=== PATIENT | female | born 1945 | race Native Hawaiian/Other Pacific Islander ===

== ENCOUNTER 2024-01-16 14:55 | Inpatient (IN) | payer MEDICARE, MEDICAID, SELFPAY ==
--- NOTE | ~2024-01-16 | CT_ITS ---
EXAMINATION: CT HEAD WITHOUT CONTRAST (STROKE PROTOCOL) CLINICAL INFORMATION: Stroke protocol. Slurred speech and altered mental status. COMPARISON: None available. TECHNIQUE: Contiguous axial imaging was performed from the skull base to vertex without intravenous administration of contrast. This CT examination was performed using dose optimization techniques as appropriate, variously including the following: *Automated exposure control *Adjustment of mA and/or kV according to patient size (this includes techniques or standardized protocols for targeted exams where dose is matched to indication/reason for exam; i.e. extremities or head) *Use of iterative reconstruction technique DLP: 687 mGy-cm FINDINGS: There is prominence to the sulci and ventricles with mild deep white matter gliosis. No evidence for intra or extra-axial fluid collection, hemorrhage, mass, or mass effect. There is low-attenuation are seen, in the brainstem and left sandra which could reflect a pontine infarct of uncertain age. Please correlate with MRI with diffusion-weighted sequences. Calvarium intact. CT/CT head for stroke IMPRESSION: No evidence for an intracranial hemorrhage however there is a suggestion of ischemic change of uncertain chronicity in the brainstem and left sandra. MRI is advised. Results will be telephoned to the ED, by the PSA.
--- NOTE | ~2024-01-16 | MR_ITS ---
EXAMINATION: MR BRAIN WITHOUT CONTRAST CLINICAL INFORMATION: CVA COMPARISON: Same-day CT head and CT angiogram of the head and neck TECHNIQUE: MRI of the brain was obtained using routine sequences without contrast. FINDINGS: Acute infarction in the left paramedian sandra corresponding to hypodensity on the prior CT. Punctate chronic right cerebellar hemisphere lacunar infarction chronic infarctions in the bilateral thalami. Approximately 1.4 cm extra-axial mass along the right posterior fossa which likely represents a meningioma but is incompletely characterized in the absence of intravenous contrast. Susceptibility weighted sequence is within normal limits. No midline shift. The basal cisterns are maintained. Moderate to advanced generalized cerebral volume loss with moderate chronic microvascular ischemic change. Intracranial flow voids are preserved. Scattered mild paranasal sinus polypoid mucosal thickening. The mastoid air cells are well-aerated. No focal expansile or destructive osseous lesion. MR/MR head/brain wo con IMPRESSION: Acute infarction in the left paramedian sandra corresponding to hypodensity on the prior CT examination. Moderate chronic microvascular ischemic change with small chronic lacunar infarctions in the bilateral thalami and right cerebellar hemisphere.
--- NOTE | ~2024-01-16 | CT_ITS ---
EXAMINATION: CT ANGIOGRAM NECK WITH CONTRAST CT ANGIOGRAM BRAIN WITH CONTRAST CLINICAL INFORMATION: Right arm weakness. Slurred speech. COMPARISON: Head CT January 26, 2024. TECHNIQUE: Test bolus sequences followed by intravenous administration 70 mL of Omnipaque 350. Helical imaging was performed in the axial plane from the thoracic inlet to the skull vertex. Delayed postcontrast imaging of the head was also performed. The data was processed at the electroencephalographic technologist workstation for generation of MIP sequences. Angled MIPs and volume rendered reformatted images were also generated at an offline 3D workstation under concurrent supervision. Stenoses are assessed in accordance with NASCET criteria unless otherwise indicated. This CT examination was performed using dose optimization techniques as appropriate, variously including the following: *Automated exposure control *Adjustment of mA and/or kV according to patient size (this includes techniques or standardized protocols for targeted exams where dose is matched to indication/reason for exam; i.e. extremities or head) *Use of iterative reconstruction technique FINDINGS: BRAIN: Suspected acute to subacute infarct within the left paramedian sandra that would be better assessed with a MRI of the brain is not contraindicated. There is global cerebral volume loss and there is chronic microangiopathy. There is a 1.7 cm enhancing extra-axial nodule within the right lateral aspect of the posterior fossa that abuts without invading the anterior margin of the right sigmoid sinus, most suggestive of a meningioma. [There is no intracranial hemorrhage, hydrocephalus, extra-axial surface collection, midline shift, or other herniation pattern. Freeman to white matter differentiation is diffusely maintained without evidence of an evolved acute territorial infarct. The basilar cisterns are preserved. No significant soft tissue abnormality. No acute osseous abnormality. The paranasal sinuses and the mastoid air cells are well aerated.] CERVICAL SOFT TISSUES AND LUNG APICES: Imaged upper lungs are clear. No significant soft tissue findings are appreciated within the neck. There is multilevel cervical spondylosis. NECK CTA: There is atherosclerotic calcification throughout the aortic arch and of the great vessel origins without significant stenosis. Atherosclerotic disease results in a severe stenosis of the right vertebral artery origin. The left vertebral artery is dominant and the cervical vertebral arteries are otherwise widely patent throughout their course. The vertebral arteries are codominant. No significant ostial stenosis is visualized on either side. Both vertebral arteries are widely patent throughout their extracranial cervical course. Atherosclerotic calcification involving the carotid bifurcations bilaterally without significant stenosis involving the proximal internal carotid arteries on either side. BRAIN CTA: No acute arterial occlusions intracranially. Extensive atherosclerotic calcification throughout the carotid siphons bilaterally resulting in mild stenoses. Atherosclerotic disease results in a severe stenosis of the right P2 BLOOD BANK SUPERVISOR segment and there is a severe stenosis involving a posterior right M2 middle cerebral artery branch. No aneurysm. Timing of the contrast bolus allows assessment of the major dural venous sinuses, which all opacify normally] CT/CT angio head neck stroke IMPRESSION: * Suspected acute to subacute infarct within the left paramedian sandra that would be better assessed with a MRI of the brain is not contraindicated. There is global cerebral volume loss and there is chronic microangiopathy. No intracranial hemorrhage. * There is a 1.7 cm enhancing extra-axial nodule within the right lateral aspect of the posterior fossa that abuts without invading the anterior margin of the right sigmoid sinus, most suggestive of a meningioma. * No acute arterial occlusions intracranially. Atherosclerotic disease results in a severe stenosis of the right P2 BLOOD BANK SUPERVISOR segment and there is a severe stenosis involving a posterior right M2 middle cerebral artery branch. * Atherosclerotic disease results in a severe stenosis of the right vertebral artery origin. * Multilevel cervical spondylosis. Disc protrusions at C3-C4 and C4-C5 result in suspected mass effect on the cervical spinal cord that can be correlated clinically for cervical myelopathy.
--- NOTE | 2024-01-16 15:03 | ECG_ITS ---
Test Reason : ?STROKE Blood Pressure : / mmHG Vent. Rate : 083 BPM Atrial Rate : 083 BPM P-R Int : 210 ms QRS Dur : 082 ms QT Int : 390 ms P-R-T Axes : 041 -10 060 degrees QTc Int : 458 ms Sinus rhythm with 1st degree A-V block Inferior infarct , age undetermined Possible Anterior infarct , age undetermined Abnormal ECG No previous ECGs available Referred By: Jeimy Rebolledo Electronically Signed By:RANDY ROSE MD
[2024-01-16 15:06] VITALS: BP 200/94; PULSE 85; RESP 16; TEMP 36.6; O2SAT 96; BMI 24.6
[2024-01-16 15:08] LABS: Prothrombin Time Whole Bld POC 11.1 sec (11.1-13.5); ~PT, ~INR - Anti Coag Clinic 0.9 (0.9-1.1)
[2024-01-16] MEDS: iohexoL 350 MG/ML 100 ML INFUS..BTL IV (15:14)
--- NOTE | 2024-01-16 15:35 | ED_ITS ---
HPI - Neuro Symptoms/Deficit General Chief Complaint: Stroke Stated Complaint: FACIAL DROOP, SLURRED SPEECH, LKW 1PM, Time Seen by Provider: 01/16/24 15:02 Source: patient and EMS Mode of arrival: EMS Limitations: other (poor historian) History of Present Illness ED Provider: BUTCH HPI Narrative: 78 yo female with PMH of arthritis, DM, HTN, HLD, R BKA amputation here with c/o waking up yesterday morning and her R arm felt heavy and numb she notes it has worsened since then and became weaker. She denies falling. She then noted change in vision of the R eye as well. Today a few hours prior to arrival her son noted R sided facial droop, slurred speech, she told him about the blindness in the R eye and then he noted her R arm was weaker than he realized. He thought she was c/o arthritis in the arm. He called 911 worried about a stroke. She is not on blood thinners. Onset (ago): day(s) (yesterday AM upon waking) Location: speech, right face, right arm and other (vision) History of same: No Severity: moderate Quality: weak, numb and constant Relieving factors: none Exacerbating factors: none Context: gradual onset On Anticoagulants: No Associated symptoms: weakness Treatments Prior to Arrival: none Related Data Allergies Allergy/AdvReac Type Severity Reaction Status Date / Time No Known Allergies Allergy Verified 01/16/24 15:09 Review of Systems 2 Review of Systems: Constitutional : No Fever, No Chills, No Fatigue ENT/Mouth : No sore throat, No Rhinorrhea Eyes: No Eye Pain, No Swelling, No Redness, pos vision loss Cardiovascular : No Chest Pain, No SOB, No Dyspnea on Exertion Respiratory : No Cough, No Sputum Gastrointestinal : No Nausea, No Vomiting, No Diarrhea, No abdominal Pain Genitourinary : No Dysuria, No Urinary Frequency, No Hematuria, Musculoskeletal : No joint pain, No Myalgias, No Joint Swelling Skin : No Skin Lesions, No rash Neuro : pos Weakness, pos Numbness, No Dizziness, no Headache Psych : No Anxiety/Panic, No Depression All other systems reviewed and are negative PMFSH Past Medical History Attestation statement: The following information was validated with the patient. Source: old records reviewed Medical History (Updated 01/16/24 @ 15:54 by Jeimy Rebolledo DO) Hyperlipidemia HTN (hypertension) Diabetes Surgical History (Updated 01/16/24 @ 15:44 by Jeimy Rebolledo DO) Hx of right BKA Social History Social History (Updated 01/16/24 @ 15:44 by Jeimy Rebolledo DO) Patient Tobacco Use Status: Never used Tobacco Advance Directives: No Advance Directives Information Provided: No Physical Exam 2 Vital Signs: Vital Signs: Last Vital Signs Temp 97.8 F 01/16/24 15:06 Pulse 85 01/16/24 15:06 Resp 16 01/16/24 15:06 BP 200/94 H 01/16/24 15:06 Pulse Ox 96 01/16/24 15:06 O2 Del Method Room Air 01/16/24 15:06 BMI result Body Mass Index 24.6 Appearance: Alert. Oriented X 2. No acute distress. Eyes: Pupils equal, round and reactive to light. ENT: Pharynx normal. Neck: Normal inspection. Neck supple. CVS: Normal heart rate and rhythm. Pulses normal. Respiratory: No respiratory distress. Breath sounds normal. Abdomen: Soft and non-tender. Skin: Skin warm and dry. Normal skin color. Normal skin turgor. Extremities: No lower extremity edema. 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 Medications Administered Discontinued Medications Generic Name Dose Route Start Last Admin Trade Name Freq PRN Reason Stop Dose Admin Iohexol 100 ml 01/16/24 15:14 01/16/24 15:14 Iohexol 350 Mg/Ml 100 Ml Infus..Btl IV 01/16/24 15:15 70 ml ONCE ONE Administration Medical Decision Making Medical Decision Making MDM Narrative: 78 yo female with PMH of arthritis, DM, HTN, HLD, R BKA amputation here with c/o R eye change in vision, R arm weakness, slurred speech last known well yesterday AM she is very consistent her arm started to not work well yesterday AM so she is not a candidate for TNK based off symptom onset and her son notes he didn't realize he thought it was pain. She will get CTA but suspect her onset is 24 hours ago given her reports and thrombectomy likely will not be done. Will admit for stroke work up pending reads and interventions. Discussed reasons for no TNK with son. Differential Diagnosis Differential Diagnoses: The differential diagnosis associated with the presentation includes acute CVA, mass, ICH Admission/Observation Consideration of admission/observation: Escalation of care including admission/observation considered admit for stroke Consult Healthcare Provider Management of the patient was discussed with: Hospitalist (will admit) Lab Data MDM Lab Attestation statement: I reviewed the patient's lab results. 01/16/24 15:33 01/16/24 15:33 Labs: Lab Results 01/16/24 01/16/24 Range/Units 15:02 15:33 WBC 10.1 (4.8-10.8) X10*3/uL RBC 3.79 L (4.20-5.50) X10*6/uL Hgb 11.4 L (12.0-16.0) g/dl Hct 32.5 L (37.0-47.0) % MCV 85.8 (80.0-98.0) fL MCH 30.1 (27.0-33.0) pg MCHC 35.1 H (31.0-35.0) g/dl RDW 12.8 (11.0-16.0) % Plt Count 266 (160-400) X10*3/uL MPV 9.3 L (9.4-12.3) fL Immature Gran % (Auto) 0.5 H (0.0-0.4) % Neut % (Auto) 72.6 (45-73) % Lymph % (Auto) 15.3 L (20-40) % [place] % (Auto) 5.3 (2-11) % Eos % (Auto) 5.8 H (0-4) % Baso % (Auto) 0.5 (0-2) % Lymph # (Auto) 1.6 (1.2-4.9) X10*3/uL [place] # (Auto) 0.5 (0.1-1.2) X10*3/uL Eos # (Auto) 0.6 H (0.0-0.4) X10*3/uL Baso # (Auto) 0.1 (0.0-0.2) X10*3/uL Abs Immat Gran (auto) 0.05 H (0.00-0.03) X10*3/uL Absolute Neuts (auto) 7.4 (2.0-8.3) x10*3/uL Absolute Nucleated RBC 0.000 (0.0-0.012) X10*3/uL Nucleated RBC % (auto) 0.0 (0.0-0.2) /100WBC PT 10.7 L (11.1-13.3) SEC Whole Blood PT 11.1 (11.1-13.5) sec INR 0.9 (0.9-1.1) Whole Blood INR 0.9 (0.9-1.1) Estimat Average Glucose 203 mg/dL Hemoglobin A1c % 8.7 H (<6.0) % Independent Interpretation I performed an independent interpretation of an: EKG and CT Scan (+ stroke) Interpretation: Rate: 83 Rhythm: NSR 1st degree AVB [place]: left Normal P waves. Normal MACKENZIE. Normal QRS complex. ST T wave : no JOHAN inverted t waves V1, flat t waves aVL qTC: 458 prior studies: old inf infarct The study has been interpreted contemporaneously by me. . Radiology Impression Discussion of test interpretation with radiology: I discussed test interpretation with the radiologist and I have reviewed the radiologist's reading. Radiologist Impression: CT head no ICH concern for sandra/brainstem infarct 346pm CTA - left pontine infarct acute to subacute infarct Independent Historian Clinical information obtained from an independent historian. History obtained from or confirmed by: EMS and Other (son Huy) External Record Review External record reviewed: Outpatient record NIH Stroke Scale Level of Consciousness: Alert Level of Consciousness Questions: Answers one question correctly Level of Consciousness Commands: Performs both tasks correctly Best Gaze: Partial gaze palsy Visual: Partial hemianopia Facial Palsy: Minor paralyis Motor Arm (Right): Some effort against gravity Motor Arm (Left): No drift Motor Leg (Right): No drift Motor Leg (Left): No drift Limb Ataxia: Absent Sensory: Mild to moderate sensory loss Best Language: No aphasia Dysarthia: Mild to moderate dysarthria Extinction and Inattention: Visual, tactile, auditory, spatial, or personal inattention Score: 9 Critical Care Time Critical Care Time Critical Care Time: Yes Total Critical Care Time: 40 Attestation: review of records, stroke protocol, admission, radiology discussions, fam discussion I attest to this time spent taking care of the patient Discharge Plan Discharge Clinical Impression: Left pontine CVA Patient Disposition: Admitted As Inpatient Print Language: Nepali
[2024-01-16 15:39] LABS: MANUAL DIFF FLAG NO
[2024-01-16 15:40] LABS: Basophils Absolute Auto 0.1 X10*3/uL (0.0-0.2); Basophils Percent Auto 0.5 % (0-2); Eosinophils Absolute Auto 0.6 X10*3/uL (0.0-0.4); Eosinophils Percent Auto 5.8 % (0-4); Hematocrit 32.5 % (37.0-47.0); Hemoglobin 11.4 g/dl (12.0-16.0); Imm Gran Abs Auto 0.05 X10*3/uL (0.00-0.03); Imm Gran Pct Auto 0.5 % (0.0-0.4); Lymphocytes Absolute Auto 1.6 X10*3/uL (1.2-4.9); Lymphocytes Percent Auto 15.3 % (20-40); Mean Corpuscular HGB Conc 35.1 g/dl (31.0-35.0); Mean Corpuscular Hemoglobin 30.1 pg (27.0-33.0); Mean Corpuscular Volume 85.8 fL (80.0-98.0); Mean Platelet Volume 9.3 fL (9.4-12.3); Monocytes Absolute Auto 0.5 X10*3/uL (0.1-1.2); Monocytes Percent Auto 5.3 % (2-11); Neutrophils Absolute Auto 7.4 x10*3/uL (2.0-8.3); Neutrophils Percent Auto 72.6 % (45-73); Platelet Count 266 X10*3/uL (160-400); Red Blood Count 3.79 X10*6/uL (4.20-5.50); Red Cell Distribution Width 12.8 % (11.0-16.0); White Blood Count 10.1 X10*3/uL (4.8-10.8)
[2024-01-16 15:51] LABS: INTERNATIONAL NORM RATIO 0.9 (0.9-1.1); Prothrombin Time 10.7 SEC (11.1-13.3)
[2024-01-16 15:52] LABS: Estimated Average Glucose 203 mg/dL; Hemoglobin A1c % 8.7 % (<6.0)
--- NOTE | 2024-01-16 16:02 | P.HPHOSP_ITS ---
History of Present Illness Date of Service: 01/16/24 Chief Complaint: Slurred speech This is a 78-year-old Nepali female with pertinent history of [id number]-jxwoielsu diabetes mellitus, hypertension, peripheral arterial disease status post right BKA, hypertension who was brought to the emergency department for evaluation of slurred speech. History obtained with the help of family member at bedside as patient is not fluent in [place] Citizen. Patient woke up 1 day prior to presentation with right upper extremity weakness. She thought it was due to diabetes. On the day of presentation, patient was found to have slurred speech and facial droop by family member and was asked to come to the ER. Also had some vision changes. No history of stroke before. Does not use insulin for diabetes. Patient denies fever, chills, chest discomfort, palpitations, shortness of breath, abdominal pain, changes in urinary or bowel habits. In the emergency department, imaging of the head with suspected acute to subacute infarct within the left sandra. Review of Systems 2 Constitutional: Constitutional: Reports no additional constitutional complaints and Reports weakness Cardiovascular: Cardiovascular: Reports no additional cardiovascular complaints Respiratory: Respiratory: Reports no additional respiratory complaints Gastrointestinal: Gastrointestinal: Reports no additional gastrointestinal complaints Genitourinary: Genitourinary: Reports no additional female genitourinary complaints Neurologic: Reports Abnormal speech present and Reports weakness [facility] History Hyperlipidemia HTN (hypertension) Diabetes Pertinent family history: No family history of early CAD Surgical History Hx of right BKA Social History Patient Tobacco Use Status: Never used Tobacco Smoked in Last 30 Days: No Use of substances other than those prescribed or required for medical reasons: No Advance Directives: No Advance Directives Information Provided: No Nutrition Risks: On aspiration precautions Meds Allergies Allergy/AdvReac Type Severity Reaction Status Date / Time No Known Allergies Allergy Verified 01/16/24 15:09 Home Medications ?Medication ?Instructions ?Recorded ?Confirmed ?Last Taken ?Type acetaminophen 325 mg tablet 650 mg PO Q4H PRN Pain 01/16/24 01/16/24 Unknown History amlodipine 10 mg tablet 10 mg PO DAILY 01/16/24 Unknown History atorvastatin 20 mg tablet 20 mg PO BEDTIME 01/16/24 Unknown History carvedilol 25 mg tablet 25 mg PO BID 01/16/24 Unknown History gabapentin 300 mg capsule 300 mg PO BEDTIME 01/16/24 Unknown History glipizide 5 mg tablet 5 mg PO DAILY 01/16/24 Unknown History levothyroxine 75 mcg tablet 75 mcg PO DAILY 01/16/24 Unknown History levothyroxine 75 mcg tablet 112.5 mcg PO LY 01/16/24 01/16/24 01/13/24 History metformin 1,000 mg tablet 1,000 mg PO BID 01/16/24 Unknown History olmesartan 40 mg tablet 40 mg PO DAILY 01/16/24 Unknown History sitagliptin phosphate 100 mg 100 mg PO DAILY 01/16/24 Unknown History tablet (Januvia) Physical Exam 2 Vital Signs and Narrative: Vital Signs: Last Vital Signs Temp 97.8 F 01/16/24 15:06 Pulse 85 01/16/24 15:06 Resp 16 01/16/24 15:06 BP 200/94 H 01/16/24 15:06 Pulse Ox 96 01/16/24 15:06 O2 Del Method Room Air 01/16/24 15:06 BMI result Body Mass Index 24.6 Middle-aged female lying in bed in no distress Neck supple, no JVD Regular rate and rhythm, S1-S2 heard Regular breath sounds bilaterally, no wheezing or crackles appreciated Abdomen soft nontender, no guarding, no rigidity Patient is awake, alert and oriented to self, place, time and person, Right BKA, slurred speech with mild facial droop, right arm pronator drift present Psych: Normal mood Neuro: Speech: Abnormal speech present Results Labs 01/16/24 15:33 01/16/24 15:33 Labs: Laboratory Results - last 24 hr 01/16/24 01/16/24 15:02 15:33 MCV 85.8 MCH 30.1 MCHC 35.1 H RDW 12.8 Plt Count 266 MPV 9.3 L Immature Gran % (Auto) 0.5 H Neut % (Auto) 72.6 Lymph % (Auto) 15.3 L [place] % (Auto) 5.3 Eos % (Auto) 5.8 H Baso % (Auto) 0.5 Lymph # (Auto) 1.6 [place] # (Auto) 0.5 Eos # (Auto) 0.6 H Baso # (Auto) 0.1 Abs Immat Gran (auto) 0.05 H Absolute Neuts (auto) 7.4 Absolute Nucleated RBC 0.000 Nucleated RBC % (auto) 0.0 PT 10.7 L Whole Blood PT 11.1 INR 0.9 Whole Blood INR 0.9 Estimat Average Glucose 203 Hemoglobin A1c % 8.7 H Imaging Radiologist's Impressions: Impressions Head CT 01/16/24 15:09 IMPRESSION: No evidence for an intracranial hemorrhage however there is a suggestion of ischemic change of uncertain chronicity in the brainstem and left sandra. MRI is advised. Results will be telephoned to the ED, by the PSA. Head/Neck CTA 01/16/24 15:32 IMPRESSION: * Suspected acute to subacute infarct within the left paramedian sandra that would be better assessed with a MRI of the brain is not contraindicated. There is global cerebral volume loss and there is chronic microangiopathy. No intracranial hemorrhage. * There is a 1.7 cm enhancing extra-axial nodule within the right lateral aspect of the posterior fossa that abuts without invading the anterior margin of the right sigmoid sinus, most suggestive of a meningioma. * No acute arterial occlusions intracranially. Atherosclerotic disease results in a severe stenosis of the right P2 BLACK OFF WORKER segment and there is a severe stenosis involving a posterior right M2 middle cerebral artery branch. * Atherosclerotic disease results in a severe stenosis of the right vertebral artery origin. * Multilevel cervical spondylosis. Disc protrusions at C3-C4 and C4-C5 result in suspected mass effect on the cervical spinal cord that can be correlated clinically for cervical myelopathy. Assessment and Plan (1) Slurred speech: Status: Acute Plan This is a 78-year-old Nepali female with pertinent history of csv-zckwqwd-qdmmqjyol diabetes mellitus, hypertension, peripheral arterial disease status post right BKA, hypertension who was brought to the emergency department for evaluation of slurred speech. #. Slurred speech with right-sided weakness: Will admit patient with cardiac monitoring. Imaging with left pontine acute to subacute CVA. Obtaining MRI. A1c elevated, will optimize antihyperglycemics. Lipid panel and echo pending to complete workup. Neurology consulted, appreciate assistance. PT/OT consult evaluate and treat. Nursing swallow screen. Initiating aspirin and high- intensity statin #. Gkx-qgzdvcs-kljscapdz diabetes mellitus with hyperglycemia: Initiating basal plus insulin regimen #. Hypertension: Allow for permissive hypertension #. Hypothyroidism: On Synthroid Med rec pending DVT prophylaxis: Lovenox Full code Admit as inpatient and will require two night minimum hospital stay for management possible acute CVA (as above), which is not possible in a lesser acute setting. Specialist consult pending Quality Stroke Does the patient have a stroke diagnosis?: No VTE Prior VTE?: No VTE Risk Level:: Medical - moderate - high VTE Device Contraindication: Treatment Not Indicated VTE Drug Contraindication: N/A - Med Ordered
[2024-01-16 16:03] LABS: Alanine Aminotransferase 18 U/L (0-31); Albumin Level 3.3 g/dL (3.5-5.0); Alkaline Phosphatase 100 U/L (39-117); Anion Gap 11 (12-20); Aspartate Amino Transferase 17 U/L (5-31); Bilirubin Direct 0.1 mg/dL (0.0-0.5); Bilirubin Total 0.5 mg/dL (0.0-1.0); Blood Urea Nitrogen 19 mg/dL (9-16); Carbon Dioxide 24 mmol/L (22-29); Chloride 104 mmol/L (96-108); Cholesterol 189 mg/dL (<200); Creatinine Clr Calc Pharmacy 38.3; Estimated Glomerular Filt Rate 54; Glucose Random 345 mg/dL (60-115); HDL Cholesterol 39 mg/dL (>40); Magnesium 1.8 mg/dL (1.6-2.6); Potassium 4.4 mmol/L (3.3-5.1); Sodium 135 mmol/L (135-145); Total Protein 6.3 g/dL (6.5-8.0); Triglycerides 460 mg/dL (<150)
[2024-01-16 16:06] LABS: Calcium 9.2 mg/dL (8.4-10.2)
[2024-01-16 16:09] LABS: Troponin-I High Sensitivity < 2.7 ng/L (<3.5-17.0)
[2024-01-16] MEDS: Aspirin 81 MG TAB.CHEW PO (16:38)
[2024-01-16 16:40] VITALS: BP 163/75; PULSE 84; RESP 12; O2SAT 97
--- NOTE | 2024-01-16 17:02 | PHA.MEDREC ---
Addendum entered by Gerhard Howell shiva 01/16/24 17:08: med rec reviewed Original Note: Pharmacy Consult ? Medication Reconciliation Pharmacy has completed the medication reconciliation. Spoke to patient son at bedside to confirm med list. Son had a list of patients medications with him.
[2024-01-16 17:09] LABS: Appearance Urine Clear; Color Urine Yellow; Glucose Urine UA >=1000 mg/dL (Negative); Leukocyte Esterase Urine Negative (Negative); Nitrite Urine Negative (Negative); PH 7.5 (5.0-9.0); UMIC TRIGGER UACC YES; Urine Blood Negative (Negative); Urine Ketones Negative (Negative); Urine Protein 300 (3+) mg/dL (Neg-Trace)
--- NOTE | 2024-01-16 17:16 | PC.NURSE ---
MRI screening for completed w son at bedside and faxed to MRI - per provider okay to go t MRI w/o cardiac monitoring.
[2024-01-16 17:30] LABS: Bacteria Urine 3+ (None Seen); Hyaline Casts Urine 0-2 /LPF (0-2); RBC Urine 0-2 /HPF (0-2); Squamous Epithelial Cell Urine 0-2 /HPF (0-2); WBC Urine 0-5 /HPF (0-5)
[2024-01-16 19:01] VITALS: BP 190/77; PULSE 79; RESP 19; O2SAT 99
--- NOTE | 2024-01-16 19:03 | PC.NURSE ---
late note: pt BIBA from home, per EMS pt found by son at 1300 w R sided facial droop/upper extremity weakness/slurred speech/blindness in R eye. arrived w 18G PIV R AC and sent to CT scan. labs obtained, teachers' assistant applied. after speaking w pt, it was determined that symptoms started yesterday on waking w R arm felt heaviness/numbness. some improvement in R extremity strength and speech clarity but pt remains notably weaker on the R side. passed swallow eval, provider notified. R BKA - son to bring in prosthesis and rollator walker. pt incontinent of urine. MRI screening form filled out w son at bedside and faxed to MRI - pt to MRI. monitor d/c'd for imaging per provider order. on return to room pt appeared less confused, a&ox4, hypertensive, other vss, con'td decreased strength RUE.
[2024-01-16 19:43] LABS: Glucose, Whole Blood 338 mg/dL (60-115)
[2024-01-16 19:58] VITALS: BP 177/89; PULSE 80; RESP 17; TEMP 36.9; O2SAT 98
[2024-01-16 20:55] LABS: Glucose, Whole Blood 228 mg/dL (60-115)
[2024-01-16] MEDS: Insulin Lispro 100 UNIT/ML 3 ML VIAL SUBCUT (21:03)
[2024-01-16] MEDS: Insulin Glargine,Hum.rec.anlog 100 UNIT/ML 10 ML VIAL 12 UNIT SUBCUT (21:03)
[2024-01-16] MEDS: Atorvastatin Calcium 20 MG TABLET PO (21:04)
[2024-01-16] MEDS: Atorvastatin Calcium 40 MG TABLET PO (21:04)
[2024-01-16 21:07] VITALS: BP 180/85; PULSE 74; RESP 17; TEMP 36.6; O2SAT 98
[2024-01-16] MEDS: Gabapentin 300 MG CAPSULE PO (21:07)
[2024-01-16 22:44] VITALS: BP 154/53; PULSE 86; RESP 17; TEMP 36.6; O2SAT 98
[2024-01-17] VITALS (11 sets, daily range): BP systolic 128–166; BP diastolic 56–77; PULSE 64–86; RESP 16–20; TEMP 36–36.7; O2SAT 95–99
--- NOTE | 2024-01-17 04:15 | PC.NURSE ---
Pt is being admitted for acute infarction in L sandra shown on MRI . She speaks Greek, a/ox4 ( VERY SWEET) , uses a walker at baseline. Pt presents with slurred speech( appears resolved) , R side weakness, R side facial droop. LNW 1300 8/.Passed swallow exam,Plan is neuro consult, PT/OT, ASA and statin. PMH: HTN, DM, RBKA. 18 RAC.
[2024-01-17] MEDS: Levothyroxine Sodium 75 MCG TABLET PO (05:50)
[2024-01-17 06:04] LABS: MANUAL DIFF FLAG NO
[2024-01-17 06:17] LABS: Basophils Absolute Auto 0.1 X10*3/uL (0.0-0.2); Basophils Percent Auto 0.6 % (0-2); Eosinophils Absolute Auto 0.9 X10*3/uL (0.0-0.4); Eosinophils Percent Auto 9.2 % (0-4); Hematocrit 33.1 % (37.0-47.0); Hemoglobin 11.4 g/dl (12.0-16.0); Imm Gran Abs Auto 0.06 X10*3/uL (0.00-0.03); Imm Gran Pct Auto 0.6 % (0.0-0.4); Lymphocytes Absolute Auto 2.4 X10*3/uL (1.2-4.9); Lymphocytes Percent Auto 23.9 % (20-40); Mean Corpuscular HGB Conc 34.4 g/dl (31.0-35.0); Mean Corpuscular Hemoglobin 29.6 pg (27.0-33.0); Mean Platelet Volume 9.7 fL (9.4-12.3); Monocytes Absolute Auto 0.6 X10*3/uL (0.1-1.2); Monocytes Percent Auto 6.5 % (2-11); Neutrophils Absolute Auto 5.8 x10*3/uL (2.0-8.3); Neutrophils Percent Auto 59.2 % (45-73); Platelet Count 283 X10*3/uL (160-400); Red Blood Count 3.85 X10*6/uL (4.20-5.50); White Blood Count 9.8 X10*3/uL (4.8-10.8)
[2024-01-17 06:34] LABS: Anion Gap 13 (12-20); Blood Urea Nitrogen 19 mg/dL (9-16); Calcium 9.2 mg/dL (8.4-10.2); Carbon Dioxide 25 mmol/L (22-29); Chloride 105 mmol/L (96-108); Creatinine Clr Calc Pharmacy 34.8; Estimated Glomerular Filt Rate 48; Glucose Random 234 mg/dL (60-115); Potassium 4.1 mmol/L (3.3-5.1); Sodium 139 mmol/L (135-145)
--- NOTE | 2024-01-17 07:00 | CA_ITS ---
Transthoracic Echocardiogram Patient (Last, First, Middle): Carito Mullen, Gender: Female Date of : 1945 Age: 78 Procedure Date: 01/17/2024 Procedure Type: Transthoracic Echocardiogram Location: ER Height: 154.94 cm Weight: 58.97 kg BSA: 1.57 m2 Heart Rate: 70 bpm BP: 171 / [address] Security: TO Referring MD: Katy Flaherty MD Vending Machine Refiller: Dein Nuñez MD Symptoms: CVA Study Quality: Adequate w contrast ECG Rhythm: Sinus Conclusions: - 1. Normal LV ejection fraction 60 65% with impaired relaxation filling pattern 2. Normal cardiac valvular Dopplers 3. Mildly dilated ascending aorta at 3.7 cm 4. Normal RV systolic pressure 5. Small pericardial effusion Findings Procedure Information Contrast agent, definity, is being given per protocol without apparent complications. Left Ventricle Normal left ventricular size, thickness, and systolic function. The visually estimated ejection fraction is between 60-65%. Spectral Doppler is indicative of an impaired relaxation filling pattern. E/E prime ratio is between 8 and 15 consistent with indeterminate filling pressures. Right Ventricle Normal right ventricular cavity size and systolic function. Atria Both atria are normal in size. There is no evidence of interatrial shunt. Aortic Valve Normal aortic valve structure and function. There is no aortic valve stenosis. There is no aortic valve regurgitation. Mitral Valve Normal mitral valve structure and function. There is trace mitral valve regurgitation. There is no mitral valve stenosis. Tricuspid Valve There is trace tricuspid valve regurgitation. The right ventricular systolic pressure is normal. The right ventricular systolic pressure is 19 mmHg. Normal right atrial pressure. There is no evidence of pulmonary hypertension. Great Vessels There is mild dilatation of the ascending aorta measuring 3.70 cm. Venous The inferior vena cava is normal in size and collapses greater than 50% with inspiration. Pericardium/Pleural There is a small loculated pericardial effusion overlying the left ventricle. Prior Study Comparison No prior study available for comparison. Measurements 2D Linear Measurements IVSd: 1.16 0.6-0.9/0.6-1.0 cm LVIDd: 4.18 3.9-5.3/4.2-5.9 cm LVIDd Index: 2.66 2.4-3.2/2.2-3.1 cm/m2 LVIDs: 2.84 2.0-3.6 cm LVPWd: 0.98 0.7-1.1 cm LA Diam: 2.90 2.7-3.8/3.0-4.0 cm LAIDs Index: 1.85 1.5-2.3 cm/m2 LV Mass: 186.70 67-162/88-224 g LV Mass Index: 118.92 43-95/49-115 g/m2 LVOT Diam: 2.00 3.0+(-)1.3 cm 2D Systolic Function EF 4C: 69.40 >55% EF 2C: 60.00 >55% EF BiP: 64.30 >55% Mitral Valve MV VTI: 0.30 MV Pk Gurmeet: 1.13 MV Mn Gurmeet: 0.69 MV Pk Grad: 5.00 MV Mn Grad: 2.00 MV Pk E: 0.63 MV PK A: 0.93 MV Decel Time: 199.00 E/A: 0.70 E'Lateral: 5.66 E'Medial: 4.68 E/E' Med: 13.50 E/E' Lat: 11.10 PHT: 58.00 MVA PHT: 3.79 MVA Continuity: 1.62 Decel [place]: 3.16 Aortic Valve AoV Pk Gurmeet: 1.23 AoV Mn Gurmeet: 0.85 AoV VTI: 0.23 AoV Pk Grad: 6.00 Aov Mn Grad: 3.00 CAROL Cont.VTI: 2.13 LVOT LVOT Pk Gurmeet: 0.85 LVOT Mn Gurmeet: 0.57 LVOT VTI: 0.16 LVOT Pk Grad: 3.00 LVOT Mn Grad: 1.00 LVOT Diam: 2.00 LVOT Area: 3.14 Diastolic Function MV Pk E: 0.63 MV Pk A: 0.93 E/A: 0.70 E'Medial: 4.68 E/E' Med: 13.50 E' Laterial: 5.66 E/E' Lat: 11.10 Right Ventricle TAPSE (mm): 18.70 TVS' Gurmeet: 10.80 Tricuspid Valve TR Pk Gurmeet: 2.01 TR Pk Grad: 16.00 RA Press: 3.00 RVSP: 19.00 Great Vessels Aorta Sinus of Valsalva: 3.30 2.0-3.5 cm Ao Asc: 3.70 2.1-3.4 cm Ao Arch: 2.20 Updated in Other Vendor System with Status of Final Deni Nuñez MD electronically signed on 01/17/2024 3:17:18 PM with status of Final
[2024-01-17 07:24] LABS: Glucose, Whole Blood 246 mg/dL (60-115)
[2024-01-17] MEDS: Aspirin Enteric Coated 81 MG TABLET.DR PO (07:26)
[2024-01-17] MEDS: SITagliptin Phosphate 100 MG TABLET PO (07:26)
[2024-01-17] MEDS: Insulin Lispro 100 UNIT/ML 3 ML VIAL SUBCUT ×4 (07:26→20:58)
[2024-01-17 07:53] LABS: Cholesterol 171 mg/dL (<200); HDL Cholesterol 39 mg/dL (>40); LDL Cholesterol Calculated 70 mg/dL (<100); Triglycerides 311 mg/dL (<150)
[2024-01-17] MEDS: carvediloL 25 MG TABLET PO ×2 (09:13→20:57)
[2024-01-17] MEDS: amLODIPine Besylate 5 MG TABLET PO ×2 (09:14→14:59)
--- NOTE | 2024-01-17 09:16 | MHC.CM.PN ---
Patient is unavailable;CM spoke with Son/HCP/Huy @ [phone] and addressed IMM with him (original will be mailed certified letter to Huy and a copy has been placed on the chart). Patient lives in a condo with Huy and she uses a prosthetic leg and rollator to assist with mobility. Patient is active with [facility] (RN quarterly visits). Patient will benefit from a PT eval to assist with disposition; Huy has approved referral being made for both STR and [facility]. CM has initiated and will follow for dc planning. CM has requested a copy of the HCP (Son/Huy & a Shinto member are the Agents). PCP is Dr. Ford but she sees the [facility] under Dr. Ford.
[2024-01-17] MEDS: Valsartan 160 MG TABLET PO (09:51)
--- NOTE | 2024-01-17 10:28 | MHC.CM.PN ---
CM has faxed a request to Medical Records @ [facility] @ [phone], requesting a copy of the HCP.
--- NOTE | 2024-01-17 10:36 | P.CNNE_ITS ---
History of Present Illness Data of Consult Service Date: 01/17/24 Primary Care Provider: Unknown Physician HPI Reason for consult: Stroke 78 years old woman with uncontrolled hypertension and uncontrolled diabetes came to hospital with at least a day or 2 history of right-sided weakness and facial weakness. No acute stroke treatment was possible and she was admitted for proper evaluation. She was complaining of right arm and hand weakness. There was no associated headache dizziness nausea or vomiting. Her systolic but pressure admission was 200. Review of Systems 2 Review of Systems: No recent cold or flu-like illness seizure-like activity or trauma. [facility] Past Medical History Medical History Hyperlipidemia HTN (hypertension) Diabetes Surgical History Surgical History Hx of right BKA Social History Social History Patient Tobacco Use Status: Never used Tobacco service: No Meds Allergies Allergy/AdvReac Type Severity Reaction Status Date / Time No Known Allergies Allergy Verified 01/16/24 15:09 Active Medications: Current Medications Acetaminophen (Acetaminophen 325 Mg Tablet) 650 mg PO Q6H PRN PRN Reason: Pain, Mild (Pain Scale 1-3), fever or headache Amlodipine Besylate (Amlodipine Besylate 5 Mg Tablet) 5 mg PO DAILY [facility]; Protocol Last Admin: 01/17/24 09:14 Dose: 5 mg Aspirin (Aspirin Enteric Coated 81 Mg Tablet.) 81 mg PO DAILY [facility] Last Admin: 01/17/24 07:26 Dose: 81 mg Atorvastatin Calcium (Atorvastatin Calcium 80 Mg Tablet) 80 mg PO BEDTIME [facility] Calcium Carbonate (Calcium Carbonate 750 Mg Tab.Chew) 750 mg PO Q4H PRN PRN Reason: Heartburn Carvedilol (Carvedilol 25 Mg Tablet) 25 mg PO BID [facility]; Protocol Last Admin: 01/17/24 09:13 Dose: 25 mg Gabapentin (Gabapentin 300 Mg Capsule) 300 mg PO BEDTIME [facility] Last Admin: 01/16/24 21:07 Dose: 300 mg Glucose (Glucose Gel 15 Gm Gel..Gram.) 15 gm PO Q15M PRN; Protocol PRN Reason: per Hypoglycemia Standing Ord. Dextrose (D10) 250 mls @ 750 mls/hr IV Q15M PRN; Protocol PRN Reason: per Hypoglycemia Standing Ord. Insulin Glargine (Insulin Glargine,Hum.Rec.Anlog 100 Unit/Ml 10 Ml Vial) 12 unit SUBCUT BEDTIME [facility] Last Admin: 01/16/24 21:03 Dose: 12 unit Insulin Human Lispro (Insulin Lispro 100 Unit/Ml 3 Ml Vial) 0 unit SUBCUT QIDACHS [facility]; Protocol Last Admin: 01/17/24 07:26 Dose: 4 unit Levothyroxine Sodium (Levothyroxine Sodium 75 Mcg Tablet) 75 mcg PO MoTuWeThFrSa@0600 [facility] Last Admin: 01/17/24 05:50 Dose: 75 mcg Levothyroxine Sodium (Levothyroxine Sodium 75 Mcg Tablet) 112.5 mcg PO Ly@0600 [facility] Magnesium Hydroxide (Milk Of Magnesia 30 Ml Oral.Susp) 30 ml PO DAILY PRN PRN Reason: Constipation Melatonin (Melatonin 3 Mg Tablet) 6 mg PO BEDTIME PRN PRN Reason: Insomnia Metformin HCl (Metformin Hcl 1,000 Mg Tablet) 1,000 mg PO BIDWM [facility] Ondansetron HCl (Ondansetron Hcl 4 Mg/2 Ml Vial) 4 mg IVPUSH Q8H PRN PRN Reason: Nausea and Vomiting Sitagliptin Phosphate (Sitagliptin Phosphate 100 Mg Tablet) 100 mg PO DAILY [facility] Last Admin: 01/17/24 07:26 Dose: 100 mg Valsartan (Valsartan 160 Mg Tablet) 160 mg PO DAILY [facility] Last Admin: 01/17/24 09:51 Dose: 160 mg Home Medications ?Medication ?Instructions ?Recorded ?Confirmed ?Last Taken ?Type acetaminophen 325 mg tablet 650 mg PO Q4H PRN Pain 01/16/24 01/16/24 Unknown History amlodipine 10 mg tablet 10 mg PO DAILY 01/16/24 01/16/24 01/16/24 History atorvastatin 20 mg tablet 20 mg PO BEDTIME 01/16/24 01/16/24 01/15/24 History carvedilol 25 mg tablet 25 mg PO BID 01/16/24 01/16/24 01/16/24 History gabapentin 300 mg capsule 300 mg PO BEDTIME 01/16/24 01/16/24 01/15/24 History glipizide 5 mg tablet 5 mg PO DAILY 01/16/24 01/16/2424 History levothyroxine 75 mcg tablet 75 mcg PO MOTUWETHFRSA 01/16/24 01/16/24 01/16/24 History levothyroxine 75 mcg tablet 112.5 mcg PO LY 01/16/24 01/16/24 01/13/24 History metformin 1,000 mg tablet 1,000 mg PO BID 01/16/24 01/16/24 01/16/24 History olmesartan 40 mg tablet 40 mg PO DAILY 01/16/24 01/16/24 01/16/24 History sitagliptin phosphate 100 mg 100 mg PO DAILY 01/16/24 01/16/24 01/16/24 History tablet (Januvia) Physical Exam 2 Vital Signs: Vital Signs: Last Vital Signs Temp 97.7 F 01/17/24 09:54 Pulse 72 01/17/24 09:54 Resp 17 01/17/24 09:54 BP 158/60 H 01/17/24 09:54 Pulse Ox 97 01/17/24 09:54 O2 Del Method Room Air 01/17/24 09:54 BMI result Body Mass Index 24.6 Neuro: Other: She is alert and awake with normal spontaneity of speech fluency comprehension and somewhat frontal/ euphoric affect. There was moderate right hand and arm weakness. Right leg has been amputated at knee level. Deep tendon reflexes were absent with flat left plantars. Visual cisneros were intact. There was mild right-sided central facial weakness. Results Labs 01/17/24 05:50 01/17/24 05:50 Labs: Short CBC 01/16/24 01/17/24 Range/Units 15:33 05:50 WBC 10.1 9.8 (4.8-10.8) X10*3/uL Hgb 11.4 L 11.4 L (12.0-16.0) g/dl Hct 32.5 L 33.1 L (37.0-47.0) % Plt Count 266 283 (160-400) X10*3/uL BMP 01/16/24 01/17/24 15:33 05:50 Sodium 135 139 Potassium 4.4 4.1 Chloride 104 105 Carbon Dioxide 24 25 BUN 19 H 19 H Creatinine 1.00 1.10 Calcium 9.2 9.2 Liver Function 01/16/24 Range/Units 15:33 Total Bilirubin 0.5 (0.0-1.0) mg/dL Direct Bilirubin 0.1 (0.0-0.5) mg/dL AST 17 (5-31) U/L ALT 18 (0-31) U/L Alkaline Phosphatase 100 (39-117) U/L Albumin 3.3 L (3.5-5.0) g/dL Urine 01/16/24 Range/Units 17:01 Urine Color Yellow Urine Appearance Clear Urine pH 7.5 (5.0-9.0) Ur Specific [place] 1.020 (1.005-1.025) Urine Protein 300 (3+) H (Neg-Trace) mg/dL Urine Glucose (UA) >=1000 H (Negative) mg/dL CTA of brain and neck and MRI were reviewed. An acute left basis pontis moderate size ischemic stroke was noted. There was evidence of multifocal intracranial atherosclerotic stenosis. Chronic moderate atherothrombotic microvascular ischemic changes related to hypertension were noted. There was moderate atrophy suggestive of Alzheimer-type pathology. There was also a meningioma in right posterior fossa with no mass effect. Assessment and Plan (1) Cerebral infarction: Qualifiers: Cerebral infarction mechanism: thrombosis Precerebral and cerebral artery: posterior cerebral artery Laterality of affected vessel: left Q ualified Code(s): I63.332 - Cerebral infarction due to thrombosis of left posterior cerebral artery Status: Acute 78 years old woman with uncontrolled hypertension and uncontrolled diabetes, brain imaging revealing underlying Alzheimer-type of pathology in significant chronic ischemic brain disease related to atherothrombotic hypertensive disease, and intracranial atherosclerotic disease as acute left pontine ischemic infarct. This resulted in right hemiparesis. Mainstay of management is blood pressure control, sugar control, anti-platelet agent, and statin. Because of number of other issues, proper social support in place of residence is recommended. She should not drive. Finally, there is also a meningioma but that does not require any intervention at this time as it is not causing any trouble. (2) Cerebral microvascular disease: Status: Acute (3) Alzheimer dementia: Qualifiers: Alzheimer's disease onset: unspecified onset Dementia severity: m oderate Dementia behavioral or psychological symptom: with other behavioral disturbance Qualified Code(s): G30.9 - Alzheimer's disease, unspecified; F02.B18 - Dementia in other diseases classified elsewhere, moderate, with other behavioral disturbance Status: Acute (4) Multifactorial dementia: Status: Acute (5) Meningioma: Status: Acute (6) Intracranial vascular stenosis: Status: Acute Procedures Date of Service Date of Service: 01/17/24
--- NOTE | 2024-01-17 10:45 | MHC.CM.PN ---
[facility] has a copy of the HCP and is faxing it to .
[2024-01-17 10:58] LABS: Glucose, Whole Blood 286 mg/dL (60-115)
[2024-01-17] MEDS: Enoxaparin Sodium 40 MG/0.4 ML SYRINGE SUBCUT (12:27)
--- NOTE | 2024-01-17 14:32 | HO.PM.IMPN ---
Subjective Subjective Date of Service: 01/17/24 Interval History: seen and evaluated this morning still reporting right UE weakness, facial drop and slurred speech with mild improvement since admission no other events reported Review of Systems Review of Systems: Yes all other systems are reviewed and are negative Physical Exam Vital Signs: Vital Signs: Last Vital Signs Temp 96.8 F 01/17/24 11:18 Pulse 75 01/17/24 11:18 Resp 18 01/17/24 11:18 BP 166/77 H 01/17/24 11:18 Pulse Ox 97 01/17/24 11:18 O2 Del Method Room Air 01/17/24 11:18 BMI result Body Mass Index 24.6 Const: Other: Constitutional : Awake, interactive, not in distress Neck : Normal inspection, Supple Cardiovascular : RRR, no JVP, no lower extremity edema Respiratory : good bilateral air entry, no crackles, wheezes or rhonchi Gastrointestinal: soft, lax, Normal bowel sounds, Non tender Skin : Warm, Dry Neurological : Alert & oriented x3, fluent speech overall, moderate right hand and arm weakness. Rt BKA. mild right sided central facial droop. Objective Data Active Medications Acetaminophen (Acetaminophen 325 Mg Tablet) 650 mg PO Q6H PRN PRN Reason: Pain, Mild (Pain Scale 1-3), fever or headache Amlodipine Besylate (Amlodipine Besylate 5 Mg Tablet) 5 mg PO DAILY [facility]; Protocol Last Admin: 01/17/24 09:14 Dose: 5 mg Documented By: PADMINI Aspirin (Aspirin Enteric Coated 81 Mg Tablet.) 81 mg PO DAILY [facility] Last Admin: 01/17/24 07:26 Dose: 81 mg Documented By: PADMINI Atorvastatin Calcium (Atorvastatin Calcium 80 Mg Tablet) 80 mg PO BEDTIME [facility] Calcium Carbonate (Calcium Carbonate 750 Mg Tab.Chew) 750 mg PO Q4H PRN PRN Reason: Heartburn Carvedilol (Carvedilol 25 Mg Tablet) 25 mg PO BID [facility]; Protocol Last Admin: 01/17/24 09:13 Dose: 25 mg Documented By: PADMINI Enoxaparin Sodium (Enoxaparin Sodium 40 Mg/0.4 Ml Syringe) 40 mg SUBCUT Q24H [facility] Last Admin: 01/17/24 12:27 Dose: 40 mg Documented By: PAT Gabapentin (Gabapentin 300 Mg Capsule) 300 mg PO BEDTIME [facility] Last Admin: 01/16/24 21:07 Dose: 300 mg Documented By: JESSICA Glucose (Glucose Gel 15 Gm Gel..Gram.) 15 gm PO Q15M PRN; Protocol PRN Reason: per Hypoglycemia Standing Ord. Dextrose (D10) 250 mls @ 750 mls/hr IV Q15M PRN; Protocol PRN Reason: per Hypoglycemia Standing Ord. Insulin Glargine (Insulin Glargine,Hum.Rec.Anlog 100 Unit/Ml 10 Ml Vial) 12 unit SUBCUT BEDTIME [facility] Last Admin: 01/16/24 21:03 Dose: 12 unit Documented By: JESSICA Insulin Human Lispro (Insulin Lispro 100 Unit/Ml 3 Ml Vial) 0 unit SUBCUT QIDACHS [facility]; Protocol Last Admin: 01/17/24 12:27 Dose: 6 unit Documented By: PAT Levothyroxine Sodium (Levothyroxine Sodium 75 Mcg Tablet) 75 mcg PO MoTuWeThFrSa@0600 [facility] Last Admin: 01/17/24 05:50 Dose: 75 mcg Documented By: JESSICA Levothyroxine Sodium (Levothyroxine Sodium 75 Mcg Tablet) 112.5 mcg PO Mcgee@0600 [facility] Magnesium Hydroxide (Milk Of Magnesia 30 Ml Oral.Susp) 30 ml PO DAILY PRN PRN Reason: Constipation Melatonin (Melatonin 3 Mg Tablet) 6 mg PO BEDTIME PRN PRN Reason: Insomnia Metformin HCl (Metformin Hcl 1,000 Mg Tablet) 1,000 mg PO BIDWM [facility] Ondansetron HCl (Ondansetron Hcl 4 Mg/2 Ml Vial) 4 mg IVPUSH Q8H PRN PRN Reason: Nausea and Vomiting Sitagliptin Phosphate (Sitagliptin Phosphate 100 Mg Tablet) 100 mg PO DAILY [facility] Last Admin: 01/17/24 07:26 Dose: 100 mg Documented By: PADMINI Valsartan (Valsartan 160 Mg Tablet) 160 mg PO DAILY [facility] Last Admin: 01/17/24 09:51 Dose: 160 mg Documented By: PAT Labs 01/17/24 05:50 01/17/24 05:50 Labs: Laboratory Results - last 24 hr 01/16/24 01/16/24 01/16/24 15:02 15:33 17:01 MCV 85.8 MCH 30.1 MCHC 35.1 H RDW 12.8 Plt Count 266 MPV 9.3 L Immature Gran % (Auto) 0.5 H Neut % (Auto) 72.6 Lymph % (Auto) 15.3 L Gonzales % (Auto) 5.3 Eos % (Auto) 5.8 H Baso % (Auto) 0.5 Lymph # (Auto) 1.6 Gonzales # (Auto) 0.5 Eos # (Auto) 0.6 H Baso # (Auto) 0.1 Abs Immat Gran (auto) 0.05 H Absolute Neuts (auto) 7.4 Absolute Nucleated RBC 0.000 Nucleated RBC % (auto) 0.0 PT 10.7 L Whole Blood PT 11.1 INR 0.9 Whole Blood INR 0.9 Anion Gap 11 L Estim Creat Clear Calc 38.3 Estimated GFR 54 POC Glucose 338 H Random Glucose 345 H Estimat Average Glucose 203 Hemoglobin A1c % 8.7 H Calcium 9.2 Magnesium 1.8 Total Bilirubin 0.5 Direct Bilirubin 0.1 AST 17 ALT 18 Alkaline Phosphatase 100 Troponin I High Sens < 2.7 Total Protein 6.3 L Albumin 3.3 L Triglycerides 460 H Cholesterol 189 LDL Cholesterol, Calc TNP HDL Cholesterol 39 L Urine Color Yellow Urine Appearance Clear Urine pH 7.5 Ur Specific [place] 1.020 Urine Protein 300 (3+) H Urine Glucose (UA) >=1000 H Urine Ketones Negative Urine Blood Negative Urine Nitrite Negative Ur Leukocyte Esterase Negative Urine RBC 0-2 Urine WBC 0-5 Ur Squamous Epith Cells 0-2 Urine Bacteria 3+ Hyaline Casts 0-2 01/16/24 01/17/24 01/17/24 20:50 05:50 07:19 MCV 86.0 MCH 29.6 MCHC 34.4 RDW 13.0 Plt Count 283 MPV 9.7 Immature Gran % (Auto) 0.6 H Neut % (Auto) 59.2 Lymph % (Auto) 23.9 Gonzales % (Auto) 6.5 Eos % (Auto) 9.2 H Baso % (Auto) 0.6 Lymph # (Auto) 2.4 Gonzales # (Auto) 0.6 Eos # (Auto) 0.9 H Baso # (Auto) 0.1 Abs Immat Gran (auto) 0.06 H Absolute Neuts (auto) 5.8 Absolute Nucleated RBC 0.000 Nucleated RBC % (auto) 0.0 PT Whole Blood PT INR Whole Blood INR Anion Gap 13 Estim Creat Clear Calc 34.8 Estimated GFR 48 POC Glucose 228 H 246 H Random Glucose 234 H Estimat Average Glucose Hemoglobin A1c % Calcium 9.2 Magnesium Total Bilirubin Direct Bilirubin AST ALT Alkaline Phosphatase Troponin I High Sens Total Protein Albumin Triglycerides 311 H Cholesterol 171 LDL Cholesterol, Calc 70 HDL Cholesterol 39 L Urine Color Urine Appearance Urine pH Ur Specific [place] Urine Protein Urine Glucose (UA) Urine Ketones Urine Blood Urine Nitrite Ur Leukocyte Esterase Urine RBC Urine WBC Ur Squamous Epith Cells Urine Bacteria Hyaline Casts 01/17/24 10:55 MCV MCH MCHC RDW Plt Count MPV Immature Gran % (Auto) Neut % (Auto) Lymph % (Auto) Gonzales % (Auto) Eos % (Auto) Baso % (Auto) Lymph # (Auto) Gonzales # (Auto) Eos # (Auto) Baso # (Auto) Abs Immat Gran (auto) Absolute Neuts (auto) Absolute Nucleated RBC Nucleated RBC % (auto) PT Whole Blood PT INR Whole Blood INR Anion Gap Estim Creat Clear Calc Estimated GFR POC Glucose 286 H Random Glucose Estimat Average Glucose Hemoglobin A1c % Calcium Magnesium Total Bilirubin Direct Bilirubin AST ALT Alkaline Phosphatase Troponin I High Sens Total Protein Albumin Triglycerides Cholesterol LDL Cholesterol, Calc HDL Cholesterol Urine Color Urine Appearance Urine pH Ur Specific [place] Urine Protein Urine Glucose (UA) Urine Ketones Urine Blood Urine Nitrite Ur Leukocyte Esterase Urine RBC Urine WBC Ur Squamous Epith Cells Urine Bacteria Hyaline Casts Assessment and Plan (1) Intracranial vascular stenosis: Status: Acute (2) Left pontine CVA: Status: Acute (3) Slurred speech: Status: Acute Plan This is a 78-year-old [place] female with pertinent history of [id number] diabetes mellitus, hypertension, peripheral arterial disease status post right BKA, hypertension who was brought to the emergency department for evaluation of slurred speech. # Acute left DESTINY stroke presenting with slurred speech with right-sided weakness feels more strength in right side MRI showing left pontine acute CVA. ASA Lipid panel done, high dose Atorvastatin Echo pending Neurology input appreciated PT/OT evaluation # Ett-[id number] diabetes mellitus with hyperglycemia A1c 8.7 Started on basal plus insulin regimen, increase to 15 units # Hypertension Start home medications; Amlodipine, Sartan and Carvedilol # Hypothyroidism: On Synthroid DVT prophylaxis: Lovenox will require overnight hospital stay for management acute CVA pending work up finalization and disposition Quality Stroke Does the patient have a stroke diagnosis?: No VTE Prior VTE?: No VTE Risk Level:: Medical - moderate - high VTE Device Contraindication: Treatment Not Indicated VTE Drug Contraindication: N/A - Med Ordered
[2024-01-17 16:59] LABS: Glucose, Whole Blood 317 mg/dL (60-115)
[2024-01-17 20:14] LABS: Glucose, Whole Blood 271 mg/dL (60-115)
[2024-01-17] MEDS: Gabapentin 300 MG CAPSULE PO (20:56)
[2024-01-17] MEDS: Atorvastatin Calcium 80 MG TABLET PO (20:56)
[2024-01-17] MEDS: Insulin Glargine,Hum.rec.anlog 100 UNIT/ML 10 ML VIAL 15 UNIT SUBCUT (20:57)
[2024-01-18 03:14] VITALS: BP 133/60; PULSE 70; RESP 18; TEMP 36.4; O2SAT 98
[2024-01-18] MEDS: Levothyroxine Sodium 75 MCG TABLET PO (05:55)
[2024-01-18 06:09] LABS: Hematocrit 32.3 % (37.0-47.0); Mean Corpuscular HGB Conc 34.1 g/dl (31.0-35.0); Mean Corpuscular Hemoglobin 29.3 pg (27.0-33.0); Mean Corpuscular Volume 86.1 fL (80.0-98.0); Platelet Count 253 X10*3/uL (160-400); Red Blood Count 3.75 X10*6/uL (4.20-5.50); Red Cell Distribution Width 12.7 % (11.0-16.0); White Blood Count 9.6 X10*3/uL (4.8-10.8)
[2024-01-18 06:37] LABS: Anion Gap 13 (12-20); Blood Urea Nitrogen 26 mg/dL (9-16); Calcium 8.9 mg/dL (8.4-10.2); Carbon Dioxide 23 mmol/L (22-29); Chloride 106 mmol/L (96-108); Estimated Glomerular Filt Rate 39; Glucose Random 260 mg/dL (60-115); Potassium 4.4 mmol/L (3.3-5.1); Sodium 138 mmol/L (135-145)
[2024-01-18 07:59] LABS: Glucose, Whole Blood 266 mg/dL (60-115)
[2024-01-18 08:00] VITALS: BP 116/57; PULSE 81; RESP 20; TEMP 36.6; O2SAT 94
[2024-01-18] MEDS: SITagliptin Phosphate 100 MG TABLET PO (09:22)
[2024-01-18] MEDS: Aspirin Enteric Coated 81 MG TABLET.DR PO (09:24)
[2024-01-18] MEDS: carvediloL 25 MG TABLET PO (09:24)
[2024-01-18] MEDS: amLODIPine Besylate 10 MG TABLET PO (09:24)
[2024-01-18] MEDS: Valsartan 160 MG TABLET PO (09:24)
[2024-01-18] MEDS: Enoxaparin Sodium 40 MG/0.4 ML SYRINGE SUBCUT (09:25)
[2024-01-18] MEDS: Insulin Lispro 100 UNIT/ML 3 ML VIAL SUBCUT ×2 (09:25→12:40)
[2024-01-18 09:28] VITALS: BP 135/61; PULSE 88
--- NOTE | 2024-01-18 10:33 | MHC.CM.PN ---
Per MD, Patient is medically cleared for dc to Acute Rehab today. Patient will dc to the first choice facility/[facility] today at 1PM, via [facility]. CM spoke with Son/HCP/Huy @ listed # and have informed him of the dc plan.Last IMM addressed on 01/17/2024.
--- NOTE | 2024-01-18 11:00 | PM.DS ---
DS: Providers Provider Date of Service: 01/18/24 Date of admission: 01/16/24 16:00 Date of discharge: 01/18/24 Primary care physician: Bella Ford MD Consults: 01/16/24 15:59 Consult to Neurology Routine Consulting Provider: [facility] Reason for consultation: CVA DS: Diagnosis Discharge Diagnosis (1) Intracranial vascular stenosis: Status: Acute (2) Left pontine CVA: Status: Acute (3) Slurred speech: Status: Acute DS: Summary Hospital Course Hospital Course: Admission note HPI This is a 78-year-old Amharic female with pertinent history of lvd-kbyelyp-ecuwhahzy diabetes mellitus, hypertension, peripheral arterial disease status post right BKA, hypertension who was brought to the emergency department for evaluation of slurred speech. History obtained with the help of family member at bedside as patient is not fluent in [place]. Patient woke up 1 day prior to presentation with right upper extremity weakness. She thought it was due to diabetes. On the day of presentation, patient was found to have slurred speech and facial droop by family member and was asked to come to the ER. Also had some vision changes. No history of stroke before. Does not use insulin for diabetes. Patient denies fever, chills, chest discomfort, palpitations, shortness of breath, abdominal pain, changes in urinary or bowel habits. In the emergency department, imaging of the head with suspected acute to subacute infarct within the left destiny. Hospital course # Acute left DESTINY stroke presenting with slurred speech with right-sided weakness The patient was admitted for acute stroke work up as images of CTA and MRI showing left pontine acute CVA. Started on ASA 81 mg and Atorvastatin 80 mg bedtime. Echo was done showing normal EF 55-60%. Monitored on Telemetry with no abnormal rhythm noticed. Had Lipid panel done and evaluated by Neurology who recommended BP control, Diabetes control, Aspirin and Statin. PT/OT evaluated the patient and recommended acute rehab placement. # Geg-flxguqh-vpvnrolje diabetes mellitus with hyperglycemia. HbA1c 8.7. To increase Glipizide on discharge to 10 mg daily and continue Metformin and Jardiance current doses. To follow with PCP for further adjustments of her medications. Diabetic diet. # Hypertension Blood pressure fairly controlled with Amlodipine, Olmesartan and Carvedilol. To be monitored as outpatient for further adjustment for better control. Discharge plan Start Aspirin 81 mg daily Start Atorvastatin 80 mg bedtime Increase Glipizide to 10 mg daily Continue Hypertension medicaitons To do physical therapy at rehab Time Attestation Discharge Coordination Time (in mins): 43 Quality: Safe Use of Opioids Does Pt have an Active Cancer Diagnosis on the Problem List?: No Quality: Stroke Does the patient have a stroke diagnosis?: Yes Reason for No Anti-thrombotic at DC: N/A - Med Ordered Reason for No Anticoagulant at DC: Not indicated Reason Not Initiating IV-Tpa: Not indicated Reason for No Anti-thrombotic by Day Two: N/A - Med Ordered Reason for No Statin at DC: N/A - Med Ordered Physical Exam Vital Signs: Vital Signs: Last Vital Signs Temp 97.9 F 01/18/24 08:00 Pulse 88 01/18/24 09:28 Resp 20 01/18/24 08:00 BP 135/61 01/18/24 09:28 Pulse Ox 94 01/18/24 08:00 O2 Del Method Room Air 01/18/24 08:00 BMI result Body Mass Index 24.6 Const: Other: Constitutional : Awake, interactive, not in distress Neck : Normal inspection, Supple Cardiovascular : RRR, no JVP, no lower extremity edema Respiratory : good bilateral air entry, no crackles, wheezes or rhonchi Gastrointestinal: soft, lax, Normal bowel sounds, Non tender Skin : Warm, Dry Neurological : Alert & oriented x3, fluent speech overall, moderate right hand and arm weakness. Rt BKA. mild right sided central facial droop. DS: Data Data Completed and Pending Labs on day of discharge: Laboratory Results - last 24 hr 01/17/24 01/17/24 01/18/24 16:29 20:09 05:42 WBC 9.6 RBC 3.75 L Hgb 11.0 L Hct 32.3 L MCV 86.1 MCH 29.3 MCHC 34.1 RDW 12.7 Plt Count 253 MPV 10.0 Absolute Nucleated RBC 0.000 Nucleated RBC % (auto) 0.0 Sodium 138 Potassium 4.4 Chloride 106 Carbon Dioxide 23 Anion Gap 13 BUN 26 H Creatinine 1.32 Estim Creat Clear Calc 29.0 Estimated GFR 39 POC Glucose 317 H 271 H Random Glucose 260 H Calcium 8.9 01/18/24 07:54 WBC RBC Hgb Hct MCV MCH MCHC RDW Plt Count MPV Absolute Nucleated RBC Nucleated RBC % (auto) Sodium Potassium Chloride Carbon Dioxide Anion Gap BUN Creatinine Estim Creat Clear Calc Estimated GFR POC Glucose 266 H Random Glucose Calcium Imaging MRI - head: Radiologist's impression: ITS Impressions Head CT 01/16/24 15:09 IMPRESSION: No evidence for an intracranial hemorrhage however there is a suggestion of ischemic change of uncertain chronicity in the brainstem and left destiny. MRI is advised. Results will be telephoned to the ED, by the PSA. Head/Neck CTA 01/16/24 15:32 IMPRESSION: * Suspected acute to subacute infarct within the left paramedian destiny that would be better assessed with a MRI of the brain is not contraindicated. There is global cerebral volume loss and there is chronic microangiopathy. No intracranial hemorrhage. * There is a 1.7 cm enhancing extra-axial nodule within the right lateral aspect of the posterior fossa that abuts without invading the anterior margin of the right sigmoid sinus, most suggestive of a meningioma. * No acute arterial occlusions intracranially. Atherosclerotic disease results in a severe stenosis of the right P2 [employer] segment and there is a severe stenosis involving a posterior right M2 middle cerebral artery branch. * Atherosclerotic disease results in a severe stenosis of the right vertebral artery origin. * Multilevel cervical spondylosis. Disc protrusions at C3-C4 and C4-C5 result in suspected mass effect on the cervical spinal cord that can be correlated clinically for cervical myelopathy. Brain MRI 01/16/24 18:15 IMPRESSION: Acute infarction in the left paramedian destiny corresponding to hypodensity on the prior CT examination. Moderate chronic microvascular ischemic change with small chronic lacunar infarctions in the bilateral thalami and right cerebellar hemisphere. Discharge Plan Discharge Anticipated Discharge Date/Time: 01/18/24 10:34 Patient Disposition: Xfer Inpatient Rehab Fac Discharge Diagnosis: Acute stroke Referrals: [facility] [Outside] - 1 Week Bella Ford MD [Primary Care Provider] - 1 Week Discharge Medications: New atorvastatin 80 mg Tablet 80 mg PO BEDTIME Qty: 90 0RF aspirin 81 mg Tablet,Delayed Release (Dr/Ec) 81 mg PO DAILY Qty: 90 0RF Continued carvedilol 25 mg tablet 25 mg PO BID levothyroxine 75 mcg tablet 75 mcg PO MOTUWETHFRSA metformin 1,000 mg tablet 1,000 mg PO BID gabapentin 300 mg capsule 300 mg PO BEDTIME olmesartan 40 mg tablet 40 mg PO DAILY Januvia 100 mg tablet 100 mg PO DAILY amlodipine 10 mg tablet 10 mg PO DAILY acetaminophen 325 mg Tablet 650 mg PO Q4H PRN (Reason: Pain) levothyroxine 75 mcg tablet 112.5 mcg PO LY Changed glipizide 5 mg tablet 10 mg PO DAILY Qty: 60 0RF Discontinued atorvastatin 20 mg tablet 20 mg PO BEDTIME Discharge Orders: Discharge Order (Routine); Ordered 01/18/24 Ordered By: Andrea Barger Diet: Diabetic diet Activity on Discharge: As tolerated Stand Alone Forms: Patient Portal Discharge page Print Language: [place] Care Plan Goals: Start Aspirin 81 mg daily Start Atorvastatin 80 mg bedtime Increase Glipizide to 10 mg daily Continue Hypertension medicaitons To do physical therapy at rehab Health Concerns: Read below Plan of Treatment: Read below Assessment: Read below
[2024-01-18 11:44] LABS: Glucose, Whole Blood 226 mg/dL (60-115)
[2024-01-18 12:00] VITALS: BP 149/65; PULSE 82; RESP 18; TEMP 36.4; O2SAT 97
[2024-01-18 12:02] VITALS: BP 135/61; PULSE 88
== END 2024-01-18 15:46 | DRG 66 ==
LOC: HO.ED 15:59 → HO.EDOVER 16:07 → HO.IMC 01-17 08:00
PROVIDERS: Admitting Provider Student in an Organized Health Care Education/Training Program; Emergency Provider Emergency Medicine; PCP Internal Medicine; Visit Provider Student in an Organized Health Care Education/Training Program
DX: I63.09 Cerebral infarction due to thrombosis of other precerebral artery (principal); R47.81 Slurred speech; I10 Essential (primary) hypertension; R29.709 NIHSS score 9; R29.810 Facial weakness; G30.9 Alzheimer's disease, unspecified; F02.B0 Dementia in other diseases classified elsewhere, moderate, without behavioral disturbance, psychotic disturbance, mood disturbance, and anxiety; E11.65 Type 2 diabetes mellitus with hyperglycemia; E03.9 Hypothyroidism, unspecified; I67.2 Cerebral atherosclerosis; E78.5 Hyperlipidemia, unspecified; G83.21 Monoplegia of upper limb affecting right dominant side; D32.0 Benign neoplasm of cerebral meninges; E11.51 Type 2 diabetes mellitus with diabetic peripheral angiopathy without gangrene; Z89.511 Acquired absence of right leg below knee; Z79.84 Long term (current) use of oral hypoglycemic drugs; Z79.890 Hormone replacement therapy; Z79.899 Other long term (current) drug therapy
CPT/HCPCS: 36415; 70450; 70496; 70498; 70551; 80048; 80061; 80076; 81001; 82947; 83036; 83735; 84484; 85025; 85027; 85610; 93005; 93306; 97162; 97166; 99285; J1650; Q9957; Q9967

== ENCOUNTER → 2024-01-16 15:03 | Outpatient (BNV) | payer MEDICARE, MEDICAID, SELFPAY | PROVIDERS: Admitting Provider Student in an Organized Health Care Education/Training Program; Emergency Provider Emergency Medicine; Visit Provider Internal Medicine Cardiovascular Disease | DX: R94.31 Abnormal electrocardiogram [ECG] [EKG] (principal) | CPT/HCPCS: 93010 ==

== ENCOUNTER 2024-01-16 16:00 | Outpatient (BNV) | payer MEDICARE, MEDICAID, SELFPAY | END 2024-01-17 07:00 | PROVIDERS: Admitting Provider Student in an Organized Health Care Education/Training Program; Emergency Provider Emergency Medicine; PCP Internal Medicine; Visit Provider Internal Medicine Cardiovascular Disease | DX: I31.39 Other pericardial effusion (noninflammatory) (principal); I51.89 Other ill-defined heart diseases | CPT/HCPCS: 93306 ==

== ENCOUNTER → 2024-01-16 16:00 | Outpatient (BNV) | payer MEDICARE, MEDICAID, SELFPAY | PROVIDERS: Admitting Provider Student in an Organized Health Care Education/Training Program; Emergency Provider Emergency Medicine; Visit Provider Student in an Organized Health Care Education/Training Program | DX: I61.3 Nontraumatic intracerebral hemorrhage in brain stem (principal); R47.81 Slurred speech; E11.9 Type 2 diabetes mellitus without complications; E03.9 Hypothyroidism, unspecified | CPT/HCPCS: 99223; 99232; 99239 ==

== ENCOUNTER → 2024-01-16 16:00 | Outpatient (BNV) | payer MEDICARE, MEDICAID, SELFPAY | PROVIDERS: Admitting Provider Student in an Organized Health Care Education/Training Program; Emergency Provider Emergency Medicine; Visit Provider Psychiatry & Neurology Neurology | DX: I63.332 Cerebral infarction due to thrombosis of left posterior cerebral artery (principal); G30.9 Alzheimer's disease, unspecified; F02.B18 Dementia in other diseases classified elsewhere, moderate, with other behavioral disturbance; D32.9 Benign neoplasm of meninges, unspecified | CPT/HCPCS: 99223 ==